=== PATIENT | female | born 2000 | race Asian ===

== ENCOUNTER 2023-12-04 11:48 | Emergency (ER) | payer BC, OTHER ==
[~2023-12-04] VITALS: Ht 157.5 cm; Wt 59.0 kg
[2023-12-04] MEDS: SILVER SULFADIAZINE 1 % TOPICAL CREAM 50GM TOP ONE (12:24)
[2023-12-04 12:27] VITALS: TEMP 98.1
[2023-12-04 12:30] VITALS: BP 124/76; PULSE 88; RESP 16; O2SAT 100
== END 2023-12-04 12:46 | disposition home or self-care (01) ==
LOC: EDBD 11:48 → ER 11:48
DX: T23.112A Burn of first degree of left thumb (nail), initial encounter (principal); T31.0 Burns involving less than 10% of body surface; W86.8XXA Exposure to other electric current, initial encounter; Y93.89 Activity, other specified; Y92.89 Other specified places as the place of occurrence of the external cause; Y99.8 Other external cause status
CPT/HCPCS: 16020